=== PATIENT | female | born 1940 | race Caucasian/White ===

== ENCOUNTER 2023-10-29 10:59 | Emergency (ER) | payer MEDICARE, MEDICAID, SELFPAY ==
--- NOTE | 2023-10-29 11:12 | ED.EAR ---
HPI - Ear Problem General Chief complaint: Ear Stated complaint: left ear pain Time Seen by Provider: 10/29/23 11:25 Source: patient Mode of arrival: ambulatory Limitations: no limitations History of Present Illness HPI Narrative: Ely is an 83-year-old female patient presenting to the clinic today with complaints of left ear pain that started on . She reports that the pain does come and go. States that she thinks she may have an ear infection. Related Data Home Medications Medication Instructions Recorded Confirmed atorvastatin 20 mg tablet 20 mg PO HS 10/29/23 10/29/23 budesonide-formoterol HFA 160 2 puff inhalation BID 10/29/23 10/29/23 mcg-4.5 mcg/actuation aerosol inhaler (Symbicort) clopidogrel 75 mg tablet 75 mg PO DAILY 10/29/23 10/29/23 ergocalciferol (vitamin D2) 1,250 1 unit PO WEEKLY 10/29/23 10/29/23 mcg (50,000 unit) capsule furosemide 40 mg tablet 1 mg PO DAILY 10/29/23 10/29/23 isosorbide mononitrate 60 mg 60 mg PO DAILY 10/29/23 10/29/23 tablet,extended release 24 hr levocetirizine 5 mg tablet 2.5 mg PO HS 10/29/23 10/29/23 levothyroxine 25 mcg tablet 25 mcg PO DAILY 10/29/23 10/29/23 metformin 500 mg tablet 500 mg PO DAILY 10/29/23 10/29/23 montelukast 10 mg tablet 10 mg PO DAILY 10/29/23 10/29/23 ranolazine 500 mg tablet,extended 500 mg PO BID 10/29/23 10/29/23 release,12 hr spironolactone 25 mg tablet 25 mg PO DAILY 10/29/23 10/29/23 Allergies Allergy/AdvReac Type Severity Reaction Status Date / Time ticagrelor [From Brilinta] Allergy Dyspnea / Verified 10/29/23 11:28 SOB cefuroxime [From Ceftin] AdvReac Cramping Verified 10/29/23 11:28 of the Muscles prednisone AdvReac Palpitation Verified 10/29/23 11:28 s Review of Systems Review of Systems: Pertinent positives per HPI. Patient denies any fever, chills, rash, headache, visual changes, dizziness, cough, runny nose, sore throat, shortness of breath, chest pain, palpitations, nausea, vomiting, diarrhea, constipation, abdominal pain, or any urinary issues. PMF[facility] Comments At the time of my signature, I reviewed and agree with the nursing past medical, surgical, social, and family history. There is no relevant family history pertinent to the patient complaint. Exam Narrative: General: Well-developed, well nourished, in no apparent distress Head: Normocephalic, atraumatic Eyes: Pupils equally round and reactive to light bilaterally, EOM intact, sclera and conjunctive clear, no discharge, lids normal Ears: Right tMs intact and clear, left TM intact, mild bulging, fluid noted behind the TM, ear canals clear, no drainage, grossly hearing normal. Nose: Nares patent, no discharge, no inflammation, no sinus tenderness. Mouth: Oropharynx without lesions or masses, good dentition, MMM. Neck: Supple, trachea midline, no enlargement of anterior or posterior cervical nodes, no thyroid masses or goiter palpable. Cardio: Regular rate and rhythm, s1 and s2 normal, no murmur appreciated. Resp: Clear to auscultation bilaterally anteriorly and posteriorly, no rhonchi, rales, wheezing or rubs Course Course Emergency Course: Portions of this record may have been created with voice recognition software. Level of Care: Express Care Visit Vital Signs Vital signs: Vital signs reviewed Medical Decision Making MDM Narrative Medical decision making narrative: At the time of visit patient is resting comfortably on the exam table. Patient appears to be nontoxic. Plan: I suspect patient has left serous otitis. Prescription for fluticasone and Claritin was sent to the pharmacy. Supportive measures were discussed with the patient and they voiced understanding discharge instructions and agrees to treatment plan. Return precautions reviewed Differential Diagnosis Differential Diagnosis: Otitis media, otitis externa, eustachian tube dysfunction, cerumen impaction, upper respiratory infection, serous ot
[2023-10-29 11:23] VITALS: BP 117/75; PULSE 85; RESP 20; TEMP 36.3; O2SAT 97
== END 2023-10-29 11:35 | disposition home or self-care (01) ==
PROVIDERS: Emergency Provider Nurse Practitioner Family; PCP Internal Medicine
DX: H65.02 Acute serous otitis media, left ear (principal); E78.00 Pure hypercholesterolemia, unspecified; I10 Essential (primary) hypertension; E11.9 Type 2 diabetes mellitus without complications; J45.909 Unspecified asthma, uncomplicated
CPT/HCPCS: 99213; G0463

== ENCOUNTER 2024-10-10 11:26 | Emergency (ER) | payer MEDICARE, MEDICAID, SELFPAY ==
--- NOTE | ~2024-10-10 | XR_ITS ---
EXAMINATION: XR foot LT min 3V DATE: 10/10/2024 11:58 INDICATION: Left foot pain and swelling. TECHNIQUE: 4 views of left foot were obtained. COMPARISON: None. FINDINGS: Alignment is normal. No acute fracture. There is an old healed fracture of fifth proximal p halanx. Joint spaces are normal. IMPRESSION: 1. No acute fracture. Reviewed, dictated and finalized at location B. OMATIC INTERPRETER/TRANSLATOR IMPRESSION: 1. No acute fracture.
[2024-10-10 11:32] VITALS: BP 137/70; PULSE 84; RESP 20; TEMP 36.1; O2SAT 100
--- NOTE | 2024-10-10 11:33 | ED.EXTPRO ---
HPI - Extremity Problem General Chief complaint: Extremity Problem,Nontraumatic Stated complaint: Left Foot Pain Time Seen by Provider: 10/10/24 11:33 Source: patient, RN notes reviewed and old records reviewed Mode of arrival: ambulatory Limitations: no limitations History of Present Illness HPI Narrative: Patient presents accompanied by family member. She is complaining of left foot pain. She reports that about 5 days ago she got the left foot caught under the rocker a rocking chair. Says that she has had bruising since that time. She is observed ambulating with the assist of a quad cane, states that this is typical for her. She denies all other injury and trauma. This has not been taking any medication for her symptoms. She voices no other concerns or complaints today Related Data Home Medications ?Medication ?Instructions ?Recorded ?Confirmed ?Last Taken ?Type atorvastatin 20 mg tablet 20 mg PO HS 10/29/23 10/29/23 Unknown History budesonide-formoterol HFA 160 2 puff inhalation BID 10/29/23 10/29/23 Unknown History mcg-4.5 mcg/actuation aerosol inhaler (Symbicort) clopidogrel 75 mg tablet 75 mg PO DAILY 10/29/23 10/29/23 Unknown History ergocalciferol (vitamin D2) 1,250 1 unit PO WEEKLY 10/29/23 10/29/23 Unknown History mcg (50,000 unit) capsule furosemide 40 mg tablet 1 mg PO DAILY 10/29/23 10/29/23 Unknown History isosorbide mononitrate 60 mg 60 mg PO DAILY 10/29/23 10/29/23 Unknown History tablet,extended release 24 hr levocetirizine 5 mg tablet 2.5 mg PO HS 10/29/23 10/29/23 Unknown History levothyroxine 25 mcg tablet 25 mcg PO DAILY 10/29/23 10/29/23 Unknown History metformin 500 mg tablet 500 mg PO DAILY 10/29/23 10/29/23 Unknown History montelukast 10 mg tablet 10 mg PO DAILY 10/29/23 10/29/23 Unknown History ranolazine 500 mg tablet,extended 500 mg PO BID 10/29/23 10/29/23 Unknown History release,12 hr metoprolol tartrate 25 mg tablet mg 10/10/24 Unknown History potassium chloride 10 mEq meq PO 10/10/24 Unknown History tablet,extended release Allergies Allergy/AdvReac Type Severity Reaction Status Date / Time ticagrelor (From Brilinta) Allergy Dyspnea / Verified 10/10/24 11:28 SOB cefuroxime (From Ceftin) AdvReac Cramping Verified 10/10/24 11:28 of the Muscles prednisone AdvReac Palpitation Verified 10/10/24 11:28 s Review of Systems Review of Systems: All systems reviewed & are unremarkable except as noted in HPI and below Constitutional: Constitutional: Reports no additional constitutional complaints ENT: Reports system reviewed and no additional complaints, except as documented Cardiovascular: Cardiovascular: Reports no additional cardiovascular complaints Respiratory: Respiratory: Reports no additional respiratory complaints Gastrointestinal: Gastrointestinal: Reports no additional gastrointestinal complaints Musculoskeletal: Musculoskeletal: Reports as per HPI Integumentary/Breasts: Skin/Breast: Reports as per HPI [facility] Comments At the time of my signature, I reviewed and agree with the nursing past medical, surgical, social, and family history. There is no relevant family history pertinent to the patient complaint. Exam Const: General: cooperative, no acute distress, alert and awake Orientation/consciousness: oriented to person, oriented to place and oriented to time HENMT: Head: normal to inspection Mouth: Yes moist mucous membranes Resp: Effort & Inspection: normal respiratory effort and able to speak in complete sentences Auscultation: clear to auscultation bilaterally, no crackles, no rales, no rhonchi and no wheezes Cardio: Palpation: normal PMI Rate: regular rate Rhythm: regular rhythm Heart sounds: S1 normal heart sound present and S2 normal heart sound present Neuro: General: oriented to person, oriented to place and oriented to time Cranial nerves: Yes CN's II-XII intact bilaterally Extrem: Left lower extremity: foot Details: normal capillary refill, tenderness Location: of the dorsal foot Location: medially and ecchymosis dorsal mid Psych: Appearance: grossly normal Thought process: Normal thought process present Insight: Good insight present (Psych) Judgement: Good judgement present (Psych) Course Course Level of Care: Express Care Visit Vital Signs Vital signs: Reviewed MDM - Extremity (Nontraumatic) MDM Narrative Medical decision making narrative: Patient with left foot injury, negative x-ray. Supportive care measures discussed. Discharge instructions reviewed with patient, as well as provided in writing per nursing staff. The instructions also include specific and strict return/GO TO THE ER as well as f/u information. All questions have been answered, and the patient deny any further questions with discharge and discharge plan. Some parts of this dictation were generated by voice recognition software and may contain typographical and/or grammatical inaccuracies. Differential Diagnosis Differential diagnosis: Likely gout and superficial thrombophlebitis Discharge Plan Discharge Clinical Impression: Foot injury Qualifiers: Encounter type: initial encounter Laterality: left Qualified Code(s): S99.922A - Unspecified injury of left foot, initial encounter Patient Disposition: Home, Self-Care Condition: Stable Instructions: Antibiotic Form, Contusion in Adults (ED) Additional Instructions: Keep affected foot elevated as much as practical. Follow with primary care provider. Emergency department for new or worse symptoms Patient Language: Yi Prescriptions: No Action furosemide 40 mg tablet 1 mg PO DAILY metformin 500 mg tablet 500 mg PO DAILY atorvastatin 20 mg tablet 20 mg PO HS clopidogrel 75 mg tablet 75 mg PO DAILY spironolactone 25 mg tablet 25 mg PO DAILY levothyroxine 25 mcg tablet 25 mcg PO DAILY isosorbide mononitrate 60 mg tablet extended release 24 hr 60 mg PO DAILY montelukast 10 mg tablet 10 mg PO DAILY ergocalciferol (vitamin D2) 1,250 mcg (50,000 unit) capsule 1 unit PO WEEKLY ranolazine 500 mg tablet extended release 12 hr 500 mg PO BID budesonide-formoterol [Symbicort] 160-4.5 mcg/actuation HFA aerosol inhaler 2 puff INHALATION BID levocetirizine 5 mg tablet 2.5 mg PO HS fluticasone propionate 50 mcg/actuation spray,suspension 2 spray intranasal DAILY 30 Days Qty: 16 0RF Rx Instructions: administer into each nostril loratadine [Claritin] 10 mg tablet 10 mg PO DAILY 30 Days Qty: 30 0RF Follow-up/Referrals: ,Heath Rizvi MD [Primary Care Provider] - 1 Week Time of Disposition: 12:14
== END 2024-10-10 12:20 | disposition home or self-care (01) ==
PROVIDERS: Emergency Provider Nurse Practitioner Family; PCP Internal Medicine
DX: S99.922A Unspecified injury of left foot, initial encounter (principal); W23.0XXA Caught, crushed, jammed, or pinched between moving objects, initial encounter; I11.0 Hypertensive heart disease with heart failure; I50.9 Heart failure, unspecified; E78.00 Pure hypercholesterolemia, unspecified; J44.9 Chronic obstructive pulmonary disease, unspecified; E11.9 Type 2 diabetes mellitus without complications; Z79.84 Long term (current) use of oral hypoglycemic drugs; I25.2 Old myocardial infarction
CPT/HCPCS: 73630; 99213; G0463